=== PATIENT | male | born 1995 | race Caucasian/White ===

== ENCOUNTER 2018-01-23 01:40 | Emergency (ER) | payer SELFPAY ==
[~2018-01-23] VITALS: Ht 188 cm; Wt 121.0 kg
[2018-01-23 01:56] VITALS: BP 132/56
== END 2018-01-23 05:25 | disposition left against medical advice (07) ==
LOC: ER 01:40
DX: F41.0 Panic disorder [episodic paroxysmal anxiety] (principal); F41.9 Anxiety disorder, unspecified; Z53.21 Procedure and treatment not carried out due to patient leaving prior to being seen by health care provider